=== PATIENT | male | born 1995 | race Caucasian/White ===

== ENCOUNTER → 2023-02-02 10:37 | Outpatient (CLI) | payer OTHER, SELFPAY ==
--- NOTE | 2023-02-02 10:39 | DI.RAD.S_ITS ---
PROCEDURE: XR LUMBAR SPINE 2-3V INDICATIONS: Low back injury TECHNIQUE: 3 views of the lumbar spine were acquired. COMPARISON: None. FINDINGS: Bones: 5 [id number] vertebrae are present. There is normal bony alignment. No vertebral body compression fractures. No suspicious bony lesions. Soft tissues: Overlying bowel gas pattern is normal. No suspicious soft tissue calcifications. IMPRESSION: No acute fracture. No osseous lesion. If symptoms and/or clinical suspicion for pathology persist, further assessment with repeat, or advanced imaging (e.g., CT, MRI, or bone scan) may be helpful for further assessment. Dictated by: Christiano Banks M.D. on 02/02/2023 at 14:01 Transcribed by: [email or web address] on 02/02/2023 at 14:01 Approved by: Christiano Banks M.D. on 02/02/2023 at 16:31
== END ==
PROVIDERS: Referring Provider Registered Nurse; Visit Provider Registered Nurse
DX: M54.50 Low back pain, unspecified (principal)
CPT/HCPCS: 72100